=== PATIENT | male | born 1990 | race Caucasian/White ===

== ENCOUNTER 2022-07-24 13:18 | Emergency (ER) | payer OTHER ==
[~2022-07-24] VITALS: Ht 182.9 cm; Wt 90.7 kg
[2022-07-24 13:20] VITALS: BP_SYST 145
--- NOTE | 2022-07-24 13:20 | NUR ---
Placed in room 07 . Placed on environmental monitoring technician, blood pressure machine and pulse oximeter. To gown for exam. Side rails up. Report given to BALA ALBA AND BALA TRENT.
--- NOTE | 2022-07-24 13:31 | NUR ---
Pt brought in by self from home. Chief complaint dark tarry stool. Pt complains of NVD, sore throat, cough, fever and chills for 2 nights. Pt denies body aches and pain. Pt denies past medical history, A&Ox3, denies SOB, skin intact, respirations even and unlabored.
--- NOTE | 2022-07-24 13:36 | NUR ---
ER at bedside examining patient.
[2022-07-24] MEDS ORDERED: NACL 0.9% 1,000 ML IV ONE (13:45)
[2022-07-24] MEDS ORDERED: MORPHINE 4 MG INJ. 4 MG/ML VIAL IVP ONE (13:45)
--- NOTE | 2022-07-24 14:01 | NUR ---
Report taken from BALA Rhodes. Assuming care. Patient advised of cough, MD Martin notified. Patient a&Ox4 and stable.
[2022-07-24] MEDS ORDERED: LOPE2CAP PO (14:11)
[2022-07-24] MEDS ORDERED: ONDA8TAB60 PO (14:11)
[2022-07-24] MEDS ORDERED: PRED20TA PO (14:11)
--- NOTE | 2022-07-24 14:24 | NUR ---
Patient given written and verbal discharge instructions and verbalizes understanding. ER MD Martin discussed with patient the results and treatment provided. Patient in stable condition. ID arm band removed. Rx sent to pharmacy on file. Patient educated on pain management and to follow up with PMD. Pain Scale 0/10. Opportunity for questions provided and answered. Medication side effect fact sheet provided.
== END 2022-07-24 14:24 | disposition home or self-care (01) ==
LOC: SED 13:18
DX: R19.7 Diarrhea, unspecified (principal); R05.9 Cough, unspecified; R11.0 Nausea; R50.9 Fever, unspecified; Z79.899 Other long term (current) drug therapy
CPT/HCPCS: 99283